=== PATIENT | female | born 1970 | race Two or more races ===

== ENCOUNTER → 2024-08-20 14:29 | Outpatient (REF) | payer OTHER, SELFPAY | LOC: WDC 14:29 | PROVIDERS: ATTENDING PHYSICIAN Family Medicine | DX: M81.0 Age-related osteoporosis without current pathological fracture (principal); Z12.31 Encounter for screening mammogram for malignant neoplasm of breast | CPT/HCPCS: 77063; 77067 ==

== ENCOUNTER → 2024-08-21 14:55 | Outpatient (REF) | payer OTHER, SELFPAY | LOC: DHSLP 14:55 | PROVIDERS: ATTENDING PHYSICIAN Internal Medicine; FAMILY PHYSICIAN Family Medicine | DX: G47.30 Sleep apnea, unspecified (principal); R06.83 Snoring | CPT/HCPCS: 95800 ==

== ENCOUNTER → 2025-01-11 16:19 | Outpatient (REF) | payer OTHER, SELFPAY | LOC: HWRAD 16:19 | PROVIDERS: ATTENDING PHYSICIAN Family Medicine | DX: S97.122A Crushing injury of left lesser toe(s), initial encounter (principal) | CPT/HCPCS: 73630 ==